=== PATIENT | male | born 1990 | race African-American/Black ===

== ENCOUNTER 2016-09-13 15:07 | Emergency (ER) | payer SELFPAY ==
[2016-09-13 15:12] VITALS: BP 118/73; BMI 21.7
--- NOTE | 2016-09-13 15:14 | DR.GENAD ---
HPI - PCP Primary Care Physician: KARINA - HPI Comment HPI Comment: HISTORY BELOW. - Complaint/Symptoms Chief Complaint Doctors Comments: RT RIB PAIN. INJURED RIB 7 WEEKS AGO THEN REINJURE SAME AREA TODAY. SOB ON DEEP BREATHING. Chief Complaint:: PT. C/O RIGHT SIDED RIB PAIN S/P FALL. PT. STATES HE ORIGINALLY INJURED HIMSELF ABOUT 1.5 WEEKS AGO BUT FELL AGAIN TODAY. PT. GUARDING AREA. - Nurses notes reviewed Nurses Notes Review: Yes - Source History Provided: Patient - Mode of Arrival Mode of Arrival: Ambulatory - Timing Onset of Chief Complaint: 09/13/16 Came on: Suddenly - Duration Duration: Constant Duration: Days - Severity Severity: Moderate PMH - PMH Past Medical History: No Past Surgical History: No Surgical History: No History - Family History History of Family Medical Conditions: Yes Family Medical History: Diabetes Mellitus, Cancer, Hypertension - Social History Does patient currently use any type of tobacco product: Yes Have you used tobacco products in the last 12 months: Yes Type of Tobacco Use: Cigarettes Does any household member use tobacco: Yes Alcohol Use: None Do you use any recreational Drugs:: No Lives With: Family Lives Where: Home - infectious screening In the last 2 months have you had wt loss of >10#?: NO Have you had fever, night sweats or hemotysis?: No Have you traveled outside the country in the last 6 months?: No Isolation: Standard ROS - Review of Systems Constitutional: No Symptoms Reported Eyes: No Symptoms Reported ENTM: No Symptoms Reported Respiratoy: Non-Productive Cough, Short of Breath. negative: Productive Cough, Wheezing, Hemoptysis Cardiovascular: Chest Pain (CHEST WALL PAIN.) Gastrointestinal/Abdominal: No Symptoms Reported Genitourinary: No Symptoms Reported Neurological: No Symptoms Reported Musculoskeletal: Muscle Pain Integumentary: No Symptoms Reported Hematologic/Lymphatic: No Symptoms Reported Endocrine: No Symptoms Reported All Other Systems: Reviewed and Negative PE - Vital Signs Vitals: Temperature 98.1 F Pulse Rate 98 Respiratory Rate 18 Blood Pressure 118/73 O2 Sat by Pulse Oximetry 98 - General Limitations: No Limitations General Appearance: Alert - Head Head Exam: Normal Inspection - Eyes Eye exam: Normal Appearance - ENT ENT Exam: Normal Exam External Ear Exam: Normal External Inspection TM/Canal Exam: Bilateral Normal Nose Exam: Normal Nose Exam Mouth Exam: Normal Inspection Throat Exam: Normal Inspection - Neck Neck Exam: Normal Inspection - Chest Chest Inspection: Symmetric Chest Wall Rise, Tenderness - Respiratory Respiratory Exam: Respiratory Distress Respiratory Exam: Bilateral Clear to Auscultation - Cardiovascular Cardiovascular Exam: Regular Rate, Normal Rhythm, Normal Heart Sounds - Abdominal Exam Abdominal Exam: Normal Bowel Sounds, Soft. negative: Tenderness - Extremities Extremities Exam: Normal Inspection - Back Back Exam: Normal Inspection - Neurologic Neurological Exam: Alert, Oriented X3 - Psychiatric Psychiatric Exam: Anxious - Skin Skin Exam: Normal Color MDM - Differential Diagnosis Differential Diagnosis: RIGHT RIB PAIN, FRACTURE, CONTUSION AND STRAIN. Course - Treatment Treatment: SEE REPORT. - Education/Counseling Education/Counseling: Patient, Education Educated On: Diagnosis, Needs for Follow Up ROR - XRAY XRAY Interpreted by: Radiologist XRAY Findings: REPORT DISCUSS WITH PATIENT. - Diagnosis Discharge Problem: Contusion of rib on right side - Discharge Plan Disposition: 01 HOME, SELF-CARE Condition: Stable Prescriptions: Acetaminophen W/ Codeine [Tylenol/Codeine #3 300-30 mg] 1 tab PO Q4-6H PRN #15 tab PRN Reason: Pain Ibuprofen [MOTRIN TAB 600 MG *] 600 mg PO TID PRN #20 tab PRN Reason: Pain/Inflammation - Follow ups/Referrals Follow ups/Referrals: NFD,None [Primary Care Provider] - 3 days JUNIE LOUIE [STAFF PHYSICIAN] - 3 days - Instructions Instructions: Rib Contusion Additional Instructions: RETURN TO ED IF WORSE.
--- NOTE | 2016-09-13 16:52 | RAD ---
HISTORY: Rib pain. Right mid and lower rib pain status post fall this morning. Study: Right ribs four views Comparison: None. Findings: The trachea is midline. The cardiac silhouette is unremarkable. The lungs are clear without focal infiltrate or effusion. No acute cortical disruption or angulation of the bony right hemithorax can be identified. No under lying pneumothorax is seen. IMPRESSION: 1. No acute cardiopulmonary disease. 2. No evidence for acute rib fracture can be identified. Reported By:
== END 2016-09-13 17:08 | disposition home or self-care (01) ==
LOC: ER 15:37
DX: S20.219A Contusion of unspecified front wall of thorax, initial encounter (principal); W19.XXXA Unspecified fall, initial encounter; Y92.9 Unspecified place or not applicable
CPT/HCPCS: 71111; 99282; 99283

== ENCOUNTER 2017-05-05 16:31 | Emergency (ER) | payer SELFPAY ==
[2017-05-05 16:35] VITALS: BP 116/67; BMI 20.9
== END 2017-05-05 17:50 | disposition left against medical advice (07) ==
LOC: ER 16:37
DX: K08.89 Other specified disorders of teeth and supporting structures (principal)
CPT/HCPCS: 99281

== ENCOUNTER 2017-06-22 11:21 | Emergency (ER) | payer SELFPAY ==
[2017-06-22 11:26] VITALS: BP 123/73; BMI 20.7
[2017-06-22] MEDS ORDERED: NORFLEX INJ IM ONE (12:50)
[2017-06-22] MEDS ORDERED: TORADOL 60 MG VIAL IM ONE (12:50)
[2017-06-22] MEDS ORDERED: TORADOL 60 MG VIAL ONE (12:55)
[2017-06-22] MEDS ORDERED: NORFLEX INJ ONE (12:55)
--- NOTE | 2017-06-22 12:55 | DR.EXTPAIN ---
HPI - Time seen Time seen: 14:42 - PCP Primary Care Physician: nfd - Complaint/Symptoms Chief Complaint Doctor Comments: Sharp shothig pain on lt. side of neck shooting to between shoulder blades. Chief Complaint:: patient stated he has been having neck pain since last night. pt denies and trauma. Self Treatment fo Chief Complaint: Naprosyn 500 mg last night. He got some relief but symptoms have recurred since awakening this a,m, - Nurses notes reviewed Nurses Notes Review: Yes - Source History Provided: Patient - Mode of arrival Mode of Arrival: Ambulatory - Timing Onset of Chief Complaint: 06/21/17 PMH - PMH Past Medical History: No Past Surgical History: No Surgical History: No History - Family History History of Family Medical Conditions: No Family Medical History: Diabetes Mellitus, Cancer, Hypertension - Social History Does patient currently use any type of tobacco product: Yes Have you used tobacco products in the last 12 months: Yes Type of Tobacco Use: Cigarettes How many years tobacco product used: 10 Does any household member use tobacco: Yes Alcohol Use: Occasionally Do you use any recreational Drugs:: No Lives With: Family Lives Where: Home - infectious screening In the last 2 months have you had wt loss of >10#?: NO Have you had fever, night sweats or hemotysis?: No Have you traveled outside the country in the last 6 months?: No Isolation: Standard ROS - Review of Systems Constitutional: No Symptoms Reported Eyes: No Symptoms Reported ENTM: No Symptoms Reported Respiratoy: No Symptoms Reported Cardiovascular: No Symptoms Reported Gastrointestinal/Abdominal: No Symptoms Reported Genitourinary: No Symptoms Reported Neurological: No Symptoms Reported Musculoskeletal: Neck Pain Integumentary: No Symptoms Reported Hematologic/Lymphatic: No Symptoms Reported Endocrine: No Symptoms Reported Psychiatric: No Symptoms Reported All Other Systems: Reviewed and Negative PE - Vital Signs Vitals: Temperature 98.7 F Pulse Rate 79 Respiratory Rate 16 Blood Pressure 123/73 O2 Sat by Pulse Oximetry 100 - General Limitations: No Limitations General Appearance: Alert, In No Apparent Distress - Head Head Exam: Normal Inspection - Eyes Eye exam: Normal Appearance - ENT ENT Exam: Normal Exam - Neck Neck Exam: Normal Inspection, Full ROM, Trachea Midline, Tenderness (mild on lt. paravertebral muscles with mild accompanying spasm ) - Respiratory Respiratory Exam: Normal Lung Sounds Bilat - Cardiovascular Cardiovascular Exam: Regular Rate, Normal Rhythm, +S1, +S2 - Abdominal Exam Abdominal Exam: Normal Inspection, Normal Bowel Sounds, Soft - Extremities Extremities Exam: Normal Inspection, Full ROM, Normal Capillary Refill - Back Back Exam: Normal Inspection - Neurological Neurological Exam: Alert, Oriented X3, CN II-XII Intact, Normal Gait - Psychiatric Psychiatric Exam: Normal Affect, Normal Mood - Skin Skin Exam: Warm, Other (diffuse tattoos) ROR - XRAY XRAY Interpreted by: Radiologist (Disc space narrowing at C6-7, otherwise normal ) - Diagnosis Discharge Problem: Acute neck sprain - Discharge Plan Disposition: 01 HOME, SELF-CARE Condition: Stable - Follow ups/Referrals Follow ups/Referrals: NFD,None [Primary Care Provider] - 3 days - Instructions Instructions: Neck Contusion
--- NOTE | 2017-06-22 13:10 | RAD ---
HISTORY: Neck pain, nontraumatic Study: Cervical spine AP, lateral, odontoid Comparison: None Findings: There is mild reversal of the normal lordotic curve which could be positional or due to muscle spasm. The prevertebral soft tissues are normal. The alignment is normal. The vertebral bodies are of avera ge height. Disc space narrowing is present at C6-7. The posterior elements are intact. The odontoid i s intact. The joints are normal. IMPRESSION: Disc space narrowing C6-7 Reported By:
== END 2017-06-22 14:03 | disposition home or self-care (01) ==
LOC: ER 11:29
DX: S13.9XXA Sprain of joints and ligaments of unspecified parts of neck, initial encounter (principal); Y33.XXXA Other specified events, undetermined intent, initial encounter; Y92.9 Unspecified place or not applicable
CPT/HCPCS: 72040; 96372; 99282; J1885; J2360

== ENCOUNTER 2017-06-30 13:45 | Emergency (ER) | payer SELFPAY ==
[2017-06-30 13:52] VITALS: BP 146/110; BMI 20.1
--- NOTE | 2017-06-30 14:13 | DR.EXTPAIN ---
HPI - Time seen Time seen: 14:10 - PCP Primary Care Physician: KARINA - HPI Comment HPI Comment: RECENT NECK INJURY WITH INCREASING NECK PAIN AND NUMBNESS IN ARMS. NO WEANESS. - Complaint/Symptoms Chief Complaint Doctor Comments: NECK PAIN. Chief Complaint:: PT C/O HAVING NECK PAIN AND COMING TO HER ER A FEWS DAYS AGO AND C/O THAT THE MEDS GIVEN MOTRIN AND MUSCLE RELAXER AND THAT IF HE DID NOT GET RX COULD HE GET A SHOT. - Nurses notes reviewed Nurses Notes Review: Yes - Source History Provided: Patient - Mode of arrival Mode of Arrival: Ambulatory - Timing Onset of Chief Complaint: 06/28/17 - Context History of: None - Associated signs and symptoms Associated Signs and Symptoms: Pain PMH - PMH Past Medical History: No Past Surgical History: No Surgical History: No History - Family History History of Family Medical Conditions: Yes Family Medical History: Diabetes Mellitus, Cancer, Hypertension Family Medical History Comment: THROID.. - Social History Does patient currently use any type of tobacco product: Yes Have you used tobacco products in the last 12 months: Yes Type of Tobacco Use: Cigarettes Does any household member use tobacco: No Alcohol Use: None Do you use any recreational Drugs:: No Lives With: Family Lives Where: Home - infectious screening In the last 2 months have you had wt loss of >10#?: NO Have you had fever, night sweats or hemotysis?: No Have you traveled outside the country in the last 6 months?: No Isolation: Standard ROS - Review of Systems Constitutional: No Symptoms Reported Eyes: No Symptoms Reported ENTM: No Symptoms Reported Respiratoy: No Symptoms Reported Cardiovascular: No Symptoms Reported Gastrointestinal/Abdominal: No Symptoms Reported Genitourinary: No Symptoms Reported Neurological: No Symptoms Reported Musculoskeletal: Neck Pain, Neck Integumentary: No Symptoms Reported Hematologic/Lymphatic: No Symptoms Reported Endocrine: No Symptoms Reported All Other Systems: Reviewed and Negative PE - Vital Signs Vitals: Temperature 98.2 F Pulse Rate 76 Respiratory Rate 20 Blood Pressure 146/110 O2 Sat by Pulse Oximetry 100 - General Limitations: No Limitations General Appearance: Alert - Head Head Exam: Normal Inspection - Eyes Eye exam: Normal Appearance - ENT ENT Exam: Normal External Ear Exam - Neck Neck Exam: Trachea Midline, Tenderness. negative: Meningismus, Lymphadenopathy - Chest Chest Inspection: Symmetric Chest Wall Rise - Respiratory Respiratory Exam: Normal Lung Sounds Bilat Respiratory Exam: Bilateral Clear to Auscultation - Cardiovascular Cardiovascular Exam: Regular Rate, Normal Rhythm, Normal Heart Sounds - Abdominal Exam Abdominal Exam: Normal Bowel Sounds, Soft. negative: Tenderness - Extremities Extremities Exam: Normal Inspection - Lower Extremities Neurovascular/Tendon Exam: Normal Capillary Refill Gait Exam: Observed and Normal - Back Back Exam: Normal Inspection - Neurological Neurological Exam: Alert, Oriented X3 - Psychiatric Psychiatric Exam: Normal Affect, Normal Mood - Skin Skin Exam: Normal Color MDM - Differential Diagnosis Differential Diagnosis: Fracture, Neurovascular Injury, Sprain Course - Treatment Treatment: SEE ORDERS. - Education/Counseling Education/Counseling: Patient, Education Educated On: Diagnosis, Needs for Follow Up ROR - XRAY XRAY Interpreted by: Radiologist XRAY Findings: REPORT DISCUSS WITH PATIENT. - Diagnosis Discharge Problem: Cervical strain, acute Qualifiers: Encounter type: subsequent encounter Qualified Code(s): S16.1XXD - Strain of muscle, fascia and tendon at neck level, subsequent encounter - Discharge Plan Disposition: 01 HOME, SELF-CARE Condition: Stable Prescriptions: Methylprednisolone Dosepak 4Mg [MEDROL DOSEPAK (4 mg tab x 21)] 1 gonzalez PO ONCE # 1 gonzalez - Follow ups/Referrals Follow ups/Referrals: NFD,None [Primary Care Provider] - 3 days - Instructions Instructions: Muscle Strain, [id number], Cervical Sprain Additional Instructions: RETURN TO ED IF WORSE.
[2017-06-30] MEDS ORDERED: NORFLEX INJ IM ONE (14:39)
[2017-06-30] MEDS ORDERED: TORADOL 60 MG VIAL IM ONE (14:39)
[2017-06-30] MEDS ORDERED: DECADRON INJ IM ONE (14:39)
--- NOTE | 2017-06-30 14:56 | CT ---
History: Neck pain Study: CT cervical spine without contrast. Sagittal and coronal reformations were provided. Comparison: Plain film examination dated June 22 Findings: There is normal alignment with moderate to severe C6-7 disc space narrowing. There are mild anterior osteophytes at C5-6 and C6-7. There is uncovertebral joint spurring bilaterally at C5-6 and C6-7, most prominent at C6-7. The facet joints are unremarkable. The spinous processes are intact. Impression: Lower cervical degenerative disc disease and uncovertebral joint spurring most prominent at C6-7 Reported By:
[2017-06-30] MEDS ORDERED: NORFLEX INJ ONE (15:08)
[2017-06-30] MEDS ORDERED: DECADRON INJ ONE (15:08)
[2017-06-30] MEDS ORDERED: TORADOL 60 MG VIAL ONE (15:08)
== END 2017-06-30 15:38 | disposition home or self-care (01) ==
LOC: ER 13:54
DX: S16.1XXA Strain of muscle, fascia and tendon at neck level, initial encounter (principal); Y33.XXXA Other specified events, undetermined intent, initial encounter; Y92.9 Unspecified place or not applicable
CPT/HCPCS: 72125; 96372; 99282; J1100; J1885; J2360

== ENCOUNTER 2017-07-17 13:50 | Emergency (ER) | payer SELFPAY ==
[2017-07-17 13:55] VITALS: BP 124/83; BMI 20.7
== END 2017-07-17 14:00 | disposition left against medical advice (07) ==
LOC: ER 13:56
DX: R03.0 Elevated blood-pressure reading, without diagnosis of hypertension (principal)
CPT/HCPCS: 99281

== ENCOUNTER 2017-07-31 08:29 | Emergency (ER) | payer SELFPAY ==
[2017-07-31 08:37] VITALS: BP 139/79; BMI 21.6
--- NOTE | 2017-07-31 09:08 | DR.GENAD ---
HPI - PCP Primary Care Physician: NFD - HPI Comment HPI Comment: PATIENT IS ALSO HAVING HEADACHE AND IS WEAK. - Complaint/Symptoms Chief Complaint Doctors Comments: PATIENT VOMITING AND IS HAVING ABDOMINAL PAIN AND CHEST PAIN. PAITENT IS ALSO HAVING PALPITATION AND FEELING SHAKY. NO FEVER. NO DYSURIA. NO MELENA OR RECTAL BLEEDING. Chief Complaint:: Pt states, "Around 1AM I started throwing up blood about every ten minutes. After that my head started hurting. I feel weak and shakey and my heart feels like it's beating so fast that I feel like I can't breathe." - Nurses notes reviewed Nurses Notes Review: Yes - Source History Provided: Patient - Mode of Arrival Mode of Arrival: Ambulatory - Timing Onset of Chief Complaint: 07/31/17 Came on: Suddenly - Duration Duration: Constant Duration: Days - Severity Severity: Moderate PMH - PMH Past Medical History: No Past Surgical History: No Surgical History: No History - Family History History of Family Medical Conditions: No Family Medical History: Diabetes Mellitus, Cancer, Hypertension - Social History Does patient currently use any type of tobacco product: Yes Have you used tobacco products in the last 12 months: Yes Type of Tobacco Use: Cigarettes Does any household member use tobacco: No Alcohol Use: None Do you use any recreational Drugs:: No Lives With: Alone Lives Where: Home - infectious screening In the last 2 months have you had wt loss of >10#?: NO Have you had fever, night sweats or hemotysis?: No Have you traveled outside the country in the last 6 months?: No Isolation: Standard ROS - Review of Systems Constitutional: Weakness, Fatigue. negative: Chills, Fever Eyes: No Symptoms Reported ENTM: No Symptoms Reported, Throat Pain. negative: Ear Pain, Nose Congestion Respiratoy: negative: Productive Cough, Non-Productive Cough, Short of Breath, Wheezing, Hemoptysis Cardiovascular: Chest Pain Gastrointestinal/Abdominal: Abdominal Pain, Nausea, Vomiting Genitourinary: negative: Dysuria, Frequency, Hematuria Neurological: No Symptoms Reported Musculoskeletal: Muscle Pain Integumentary: No Symptoms Reported Hematologic/Lymphatic: No Symptoms Reported Endocrine: No Symptoms Reported All Other Systems: Reviewed and Negative PE - Vital Signs Vitals: Temperature 97.3 F Pulse Rate 71 Respiratory Rate 20 Blood Pressure 139/79 O2 Sat by Pulse Oximetry 100 - General Limitations: No Limitations General Appearance: Alert - Head Head Exam: Normal Inspection - Eyes Eye exam: Normal Appearance - ENT ENT Exam: Normal External Ear Exam External Ear Exam: Normal External Inspection TM/Canal Exam: Bilateral Normal Nose Exam: Normal Nose Exam Mouth Exam: Normal Inspection Throat Exam: Normal Inspection - Chest Chest Inspection: Symmetric Chest Wall Rise - Respiratory Respiratory Exam: Normal Lung Sounds Bilat Respiratory Exam: Bilateral Clear to Auscultation - Cardiovascular Cardiovascular Exam: Regular Rate, Normal Rhythm, Normal Heart Sounds - Abdominal Exam Abdominal Exam: Normal Bowel Sounds, Soft, Tenderness Abdominal Tenderness: Diffuse, Moderate - Extremities Extremities Exam: Normal Inspection - Back Back Exam: Normal Inspection - Neurologic Neurological Exam: Alert, Oriented X3 - Psychiatric Psychiatric Exam: Anxious - Skin Skin Exam: Normal Color MDM - Differential Diagnosis Differential Diagnosis: ABDOMINAL PAIN, BOWEL OBSTRUCTION, CHEST PAIN, UTI KIDNEY STONE Course - Treatment Treatment: SEE ORDERS. - Education/Counseling Education/Counseling: Patient, Education Educated On: Diagnosis, Needs for Follow Up ROR - Labs Reviewed Laboratory Results Reviewed?: Yes Result Diagrams: 07/31/17 09:17 07/31/17 09:17 Laboratory: WBC 6.5 X10^3/uL (3.6-10.0) 07/31/17 09:17 RBC 4.89 X10^6/uL (4.7-6.0) 07/31/17 09:17 Hgb 16.4 g/dL (13.5-18.0) 07/31/17 09:17 Hct 46.8 % (42.0-54.0) 07/31/17 09:17 MCV 95.7 fL (80.0-100.0) 07/31/17 09:17 MCH 33.4 pg (27.0-34.0) 07/31/17 09:17 MCHC 35.0 g/dL (33.0-35.0) 07/31/17 09:17 RDW 14.4 % (11.6-16.5) 07/31/17 09:17 Plt Count 232 X10^3/uL (150.0-450.0) 07/31/17 09:17 Plt Count Comment Adequate (ADEQUATE) 07/31/17 09:17 MPV 7.6 fL (7.4-11.0) 07/31/17 09:17 Neut % (Auto) 56.8 % (42.0-75.0) 07/31/17 09:17 Lymph % (Auto) 31.9 % (21.0-51.0) 07/31/17 09:17 Rice % (Auto) 9.2 % (0.0-13.0) 07/31/17 09:17 Eos % (Auto) 0.7 % (0.9-2.9) L 07/31/17 09:17 Baso % (Auto) 1.4 % (0.2-1.0) H 07/31/17 09:17 Neut # (Auto) 3.7 x10^3/uL (2.2-4.8) 07/31/17 09:17 Lymph # (Auto) 2.1 X10^3/uL (1.3-2.9) 07/31/17 09:17 Rice # (Auto) 0.6 x10^3/uL (0.3-0.8) 07/31/17 09:17 Eos # (Auto) 0.0 x10^3/uL (0.0-0.2) 07/31/17 09:17 Baso # (Auto) 0.1 X10^3/uL (0.0-0.1) 07/31/17 09:17 Absolute Nucleated RBC 0.0 /100WBC 07/31/17 09:17 Plt Morphology Comment Normal (NORMAL) 07/31/17 09:17 RBC Morphology Normal (NORMAL) 07/31/17 09:17 Hypochromasia 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 07/31/17 09:17 INR Target Range - 07/31/17 09:17 INR 1.05 (0.8-1.3) 07/31/17 09:17 APTT 31.6 SECONDS (22.9-36.5) 07/31/17 09:17 PTT Comment - 07/31/17 09:17 Sodium 139 mmol/L (136-145) 07/31/17 09:17 Corrected Sodium TNP 07/31/17 09:17 Potassium 3.6 mmol/L (3.5-5.1) 07/31/17 09:17 Chloride 102 mmol/L (98-107) 07/31/17 09:17 Carbon Dioxide 23.5 mmol/L (21-32) 07/31/17 09:17 BUN 12 mg/dL (7-18) 07/31/17 09:17 Creatinine 1.28 mg/dL (0.70-1.30) 07/31/17 09:17 Est GFR (MDRD) Af Amer > 60 (>60) 07/31/17 09:17 Est GFR (MDRD) Non-Af > 60 (>60) 07/31/17 09:17 Glucose 79 mg/dL (65-99) 07/31/17 09:17 Calcium 9.0 mg/dL (8.5-10.1) 07/31/17 09:17 Corrected Calcium TNP 07/31/17 09:17 Total Bilirubin 0.90 mg/dL (0.2-1.0) 07/31/17 09:17 AST 46 Units/L (15-37) H 07/31/17 09:17 ALT 34 Units/L (12-78) 07/31/17 09:17 Alkaline Phosphatase 76 Units/L (46-116) 07/31/17 09:17 Creatine Kinase 1320 Units/L (39-308) H 07/31/17 11:30 CK-MB (CK-2) 5.5 ng/mL (0-4.0) H* 07/31/17 11:30 CK/CKMB % Calc 0.4 % (<4) 07/31/17 11:30 Troponin I < 0.02 ng/mL (0-1.5) 07/31/17 11:30 Total Protein 8.4 g/dL (6.4-8.2) H 07/31/17 09:17 Albumin 4.3 g/dL (3.4-5.0) 07/31/17 09:17 Globulin 4.1 g/dL (2.5-4.5) 07/31/17 09:17 Albumin/Globulin Ratio 1.0 Ratio (1.1-2.1) L 07/31/17 09:17 Specimen Type Clean catch urine 07/31/17 09:36 Urine Color Yellow (YELLOW) 07/31/17 09:36 Urine Appearance Hazy (CLEAR) 07/31/17 09:36 Urine pH 5.0 (5.0 - 8.0) 07/31/17 09:36 Ur Specific Ethel 1.025 (1.000-1.030) 07/31/17 09:36 Urine Protein 1+ (NEGATIVE) 07/31/17 09:36 Urine Glucose (UA) Negative (NEGATIVE) 07/31/17 09:36 Urine Ketones 4+ (NEGATIVE) 07/31/17 09:36 Urine Occult Blood Negative (NEGATIVE) 07/31/17 09:36 Urine Nitrite Negative (NEGATIVE) 07/31/17 09:36 Urine Bilirubin Negative (NEGATIVE) 07/31/17 09:36 Urine Urobilinogen 1+ (NORMAL) 07/31/17 09:36 Ur Leukocyte Esterase Negative (NEGATIVE) 07/31/17 09:36 Urine RBC None seen /HPF (NONE SEEN) 07/31/17 09:36 Urine WBC None seen /HPF (NONE SEEN) 07/31/17 09:36 Ur Squamous Epith Cells Negative /HPF (NEGATIVE) 07/31/17 09:36 Urine Bacteria Negative /HPF (NEGATIVE) 07/31/17 09:36 Urine Mucus Few /HPF (NEGATIVE) 07/31/17 09:36 Ur Culture Indicated? No/not indicated 07/31/17 09:36 Urine Opiates Screen Negative (NEG=<300) 07/31/17 09:36 Urine Methadone Screen Negative (NEG=<300) 07/31/17 09:36 Ur Barbiturates Screen Negative (NEG=<200) 07/31/17 09:36 Ur Phencyclidine Scrn Negative (NEG=<25) 07/31/17 09:36 Ur Amphetamines Screen Positive (NEG=<1000) 07/31/17 09:36 U Benzodiazepines Scrn Negative (NEG=<200) 07/31/17 09:36 Urine Cocaine Screen Positive (NEG=<300) 07/31/17 09:36 U Marijuana (THC) Screen Positive (NEG=<50) A 07/31/17 09:36 H. pylori IgG Antibody Positive (NEGATIVE) A 07/31/17 09:17 - Diagnosis Discharge Problem: Substance abuse, Helicobacter pylori ab+, Esophagitis GI bleed Qualifiers: GI bleed type/associated pathology: unspecified gastrointestinal hemorrhage type Qualified Code(s): K92.2 - Gastrointestinal hemorrhage, unspecified Chest pain Qualifiers: Chest pain type: intercostal pain Qualified Code(s): R07.82 - Intercostal pain - Discharge Plan Disposition: 01 HOME, SELF-CARE Condition: Stable Prescriptions: Ondansetron [Zofran ODT 8 mg] 8 mg PO Q8H PRN #12 tab PRN Reason: Nausea/Vomiting Ranitidine HCl [ZANTAC TAB 150 MG *] 150 mg PO BID #60 tab - Follow ups/Referrals Follow ups/Referrals: NFD,None [Primary Care Provider] - 3 days NATALI PATEL [STAFF PHYSICIAN] - 2 days Shane Garcia [STAFF PHYSICIAN] - 2 days - Instructions Instructions: Esophagitis, Substance Use Disorder, Gastrointestinal Bleeding, [id number], Helicobacter Pylori Antibodies Test Additional Instructions: RETURN TO ED IF WORSE.
[2017-07-31 09:30] LABS: BASOPHILS # (AUTO) 0.1 X10^3/uL (0.0-0.1); BASOPHILS % (AUTO) 1.4 % (0.2-1.0); EOSINOPHILS % (AUTO) 0.7 % (0.9-2.9); HEMATOCRIT 46.8 % (42.0-54.0); HEMOGLOBIN 16.4 g/dL (13.5-18.0); LYMPHOCYTES # (AUTO) 2.1 X10^3/uL (1.3-2.9); LYMPHOCYTES % (AUTO) 31.9 % (21.0-51.0); MEAN CORPUSCULAR HEMOGLOBIN 33.4 pg (27.0-34.0); MEAN CORPUSCULAR VOLUME 95.7 fL (80.0-100.0); MEAN PLATELET VOLUME 7.6 fL (7.4-11.0); MONOCYTES # (AUTO) 0.6 x10^3/uL (0.3-0.8); MONOCYTES % (AUTO) 9.2 % (0.0-13.0); NEUTROPHILS # (AUTO) 3.7 x10^3/uL (2.2-4.8); NEUTROPHILS % (AUTO) 56.8 % (42.0-75.0); PLATELET COUNT 232 X10^3/uL (150.0-450.0); RED BLOOD COUNT 4.89 X10^6/uL (4.7-6.0); RED CELL DISTRIBUTION WIDTH 14.4 % (11.6-16.5); WHITE BLOOD COUNT 6.5 X10^3/uL (3.6-10.0)
[2017-07-31 09:46] LABS: ALANINE AMINOTRANSFERASE 34 Units/L (12-78); ALBUMIN 4.3 g/dL (3.4-5.0); ALKALINE PHOSPHATASE 76 Units/L (46-116); ASPARTATE AMINO TRANSFERASE 46 Units/L (15-37); BLOOD UREA NITROGEN 12 mg/dL (7-18); CARBON DIOXIDE 23.5 mmol/L (21-32); CHLORIDE 102 mmol/L (98-107); CREATININE 1.28 mg/dL (0.70-1.30); SODIUM 139 mmol/L (136-145); TOTAL PROTEIN 8.4 g/dL (6.4-8.2); eGFR BLACK RACES > 60 (>60); eGFR NON BLACK RACES > 60 (>60)
[2017-07-31 09:47] LABS: PLATELET MORPHOLOGY COMMENT NORMAL (NORMAL)
[2017-07-31 09:48] LABS: BILIRUBIN,URINE NEGATIVE (NEGATIVE); BLOOD/HEMOGLOBIN,URINE NEGATIVE (NEGATIVE); GLUCOSE, URINE NEGATIVE (NEGATIVE); KETONES,URINE 4+ (NEGATIVE); LEUKOCYTE ESTERASE ,URINE NEGATIVE (NEGATIVE); NITRITES,URINE NEGATIVE (NEGATIVE); PROTEIN,URINE 1+ (NEGATIVE); UROBILINOGEN,URINE 1+ (NORMAL)
[2017-07-31 09:50] LABS: APPEARANCE,URINE HAZY (CLEAR); COLOR,URINE YELLOW (YELLOW)
[2017-07-31 09:52] LABS: BACTERIA,URINE NEGATIVE /HPF (NEGATIVE); MUCUS,URINE FEW /HPF (NEGATIVE); RBC,URINE NONE SEEN /HPF (NONE SEEN); SQUAMOUS EPITHELIAL CELL,UR NEGATIVE /HPF (NEGATIVE)
[2017-07-31 10:17] LABS: TROPONIN I < 0.02 ng/mL (0-1.5)
[2017-07-31 10:20] LABS: CREATINE KINASE MB 6.7 ng/mL (0-4.0)
[2017-07-31 10:21] LABS: CKMB % 0.5 % (<4); CREATINE KINASE 1345 Units/L (39-308)
[2017-07-31] MEDS ORDERED: TYLENOL 325 MG TAB PO ONE ×2 (10:36→10:40)
[2017-07-31] MEDS ORDERED: ZOFRAN INJ 4 MG VIAL IVP ONE (10:56)
[2017-07-31] MEDS ORDERED: NS 1000 ML 1,000 ML IV ONE (10:56)
[2017-07-31] MEDS ORDERED: PEPCID 20 MG IV PREMIX* 20 MG/50 ML BAG IV ONE ×2 (10:56→11:02)
[2017-07-31] MEDS ORDERED: NS 1000 ML 1,000 ML ONE (11:02)
[2017-07-31 12:37] LABS: TROPONIN I < 0.02 ng/mL (0-1.5)
[2017-07-31 12:40] LABS: CKMB % 0.4 % (<4); CREATINE KINASE MB 5.5 ng/mL (0-4.0)
[2017-07-31 12:41] LABS: CREATINE KINASE 1320 Units/L (39-308)
== END 2017-07-31 13:10 | disposition home or self-care (01) ==
LOC: ER 08:58
DX: K20.9 Esophagitis, unspecified (principal); K92.2 Gastrointestinal hemorrhage, unspecified; F19.10 Other psychoactive substance abuse, uncomplicated; B96.81 Helicobacter pylori [H. pylori] as the cause of diseases classified elsewhere; R07.82 Intercostal pain
CPT/HCPCS: 36415; 80053; 80307; 81001; 82550; 82553; 84484; 85025; 85610; 85730; 86677; 96374; 96375; 99282; 99283; A4222; S0028; G0434